=== PATIENT | female | born 1965 | race Caucasian/White ===

== ENCOUNTER → 2020-05-01 | Outpatient (CLI) | payer OTHER ==
[~2020-05-01] MED LIST: BIRTH CONTROL; NORCO 325 MG-51 TAB PO
== END ==
LOC: MC.RAD 12:30
DX: N63.10 Unspecified lump in the right breast, unspecified quadrant (principal)

== ENCOUNTER → 2021-01-02 | Outpatient (CLI) | payer OTHER | LOC: MC.RAD 13:59 | DX: N63.10 Unspecified lump in the right breast, unspecified quadrant (principal) ==